=== PATIENT | male | born 1990 | race Caucasian/White ===

== ENCOUNTER 2016-03-27 15:48 | Emergency (ER) | payer BC ==
--- NOTE | 2016-03-27 16:01 | ER Document Report ---
ED Medical Screen (RME) - General Chief Complaint: Hives Stated Complaint: POSSIBLE HIVES Notes: onset: yesterday urgent yesterday steroids IM, prednisone [facility]: for worsening hives benadryl, pepcid hives improving in severity NKSAQIB works in the [employer], was tested for lyme disease yesterday I have greeted and performed a rapid initial assessment of this patient. A comprehensive ED assessment and evaluation of the patient, analysis of test results and completion of the medical decision making process will be conducted by additional ED providers. TRAVEL OUTSIDE OF THE [place] IN LAST 30 DAYS: No
[2016-03-27] MEDS ORDERED: EPINEPHRINE INJ/PF 1 MG/1 ML AMPULE IM ONE (18:55)
[2016-03-27] MEDS ORDERED: FAMOTIDINE INJ/PF 20 MG/2 ML SDV IV ONE (18:56)
[2016-03-27] MEDS ORDERED: DEXAMETHASONE SOD PHOSPHATE INJ 4 MG/1 ML VIAL IV ONE (18:56)
[2016-03-27] MEDS ORDERED: NORMAL SALINE 1000 ML 1,000 ML IV ONE (18:56)
--- NOTE | 2016-03-27 18:57 | ER Document Report ---
ED Skin Rash/Insect Bite/Abscs - General Time seen by provider: 18:15 Mode of Arrival: Ambulatory Information source: Patient, Parent TRAVEL OUTSIDE OF THE [place] IN LAST 30 DAYS: No - HPI Patient complains to provider of: Skin rash/lesion Onset: Other - see HPI note Quality of pain: Burning, Other - itchy Skin Character: Other - hives Quality of rash: Itchy, Burning Identify cause: No Similar symptoms previously: Yes Recently seen / treated by doctor: Yes <LAKEISHA KHAN - Last Filed: 03/27/16 23:57> <GEORGINA RON - Last Filed: 03/28/16 01:38> - General Chief Complaint: Hives Stated Complaint: POSSIBLE HIVES Notes: Patient is a 25-year-old male presents to the emergency department with complaints of hives. 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 Patient states that he is working Sunday and Sunday in the [employer]. Patient states that yesterday he woke up with some hives on his torso and they've progressed into his legs and arms. Patient states that he has not had any change to his soaps, detergents or other products. Patient states that he went to the urgent care on Sunday; patient was given a shot of steroids and prednisone 60 mg. Patient states that he got from urgent care his hives seem to worsen. Patient went to the [facility] emergency room last night because his hives had worsened. Patient was given Benadryl and Pepcid. Patient states that his redness and hives started to receive while at the emergency room. Patient states that when he went to sleep last night he did not have any hives. Patient woke this morning with hives all over his torso, upper and lower extremities, chest and neck. Patient states that today his hives burn and itch whereas yesterday they were mainly itching. Patient states he also has had some chills today. Patient continued to take prednisone, Benadryl and Pepcid. Patient states that the medication seems to help relieve his symptoms some in the morning when he takes his medication but that his hives are returning about mid day into the evening. Patient states that his hives are not going away. Patient states that he has not worn the same clothes however he did not change his bed sheets after completely getting rid of the hives last night in the emergency department. Patient states that he uses old spice body wash. Patient states that he had an episode of hives about 10 days ago. Patient describes the procedure completed. Patient is also found to have a enlarged spleen; this was discovered about 4 months ago and patient states he has not had an explanation. Patient states spleen has not grown in size since. Patient takes 5 mg of lisinopril for his hypertension. Patient has no known medical allergies or allergies to food for other products. Patient's primary physician is [facility]. (LAKEISHA KHAN) - Related Data Allergies/Adverse Reactions: No Known Allergies Allergy (Unverified 03/27/16 16:00) Past Medical History - General Information source: Patient - Social History Smoking Status: Never Smoker Cigarette use (# per day): No Chew tobacco use (# tins/day): No Frequency of alcohol use: None Drug Abuse: None Occupation: Integrated Marketing Intern Family History: None Patient has suicidal ideation: No Patient has homicidal ideation: No - Past Medical History Cardiac Medical History: Reports: Hx Hypertension <LAKEISHA KHAN - Last Filed: 03/27/16 23:57> Review of Systems - Review of Systems Constitutional: See HPI, Chills EENT: No symptoms reported Cardiovascular: No symptoms reported Respiratory: No symptoms reported Gastrointestinal: No symptoms reported Genitourinary: No symptoms reported Male Genitourinary: No symptoms reported Musculoskeletal: No symptoms reported Skin: See HPI Hematologic/Lymphatic: No symptoms reported Neurological/Psychological: No symptoms reported -: Yes All other systems reviewed and negative <LAKEISHA KHAN - Last Filed: 03/27/16 23:57> Physical Exam - Vital signs Interpretation: Normal - General General appearance: Appears well, Alert In distress: Mild - HEENT Head: Normocephalic, Atraumatic Eyes: Normal Pupils: PERRL Mucous membranes: Moist - Respiratory Respiratory status: No respiratory distress Chest status: Nontender Breath sounds: Normal Chest palpation: Normal - Cardiovascular Rhythm: Regular Heart sounds: Normal auscultation Murmur: No - Abdominal Inspection: Normal Distension: No distension Bowel sounds: Normal Tenderness: Nontender Organomegaly: No organomegaly - Back Back: Normal, Nontender - Extremities General upper extremity: Normal ROM, Normal strength General lower extremity: Normal ROM, Normal strength. No: Eitan's sign - Neurological Neuro grossly intact: Yes Cognition: Normal Orientation: AAOx4 [place] Coma Scale Eye Opening: Spontaneous Espinoza Coma Scale Verbal: Oriented [place] Coma Scale Motor: Obeys Commands [place] Coma Scale Total: 15 Speech: Normal Sensory: Normal - Psychological Associated symptoms: Normal affect, Normal mood - Skin Skin Temperature: Warm Skin Moisture: Dry <LAKEISHA KHAN - Last Filed: 03/27/16 23:57> <GEORGINA RON - Last Filed: 03/28/16 01:38> - Vital signs Vitals: Temp Pulse Resp BP Pulse Ox 97.3 F 77 18 144/79 H 100 03/27/16 15:57 03/27/16 15:57 03/27/16 15:57 03/27/16 15:57 03/27/16 15:57 (LAKEISHA KHAN) (GEORGINA RON) Course - Laboratory Result Diagrams: 03/27/16 19:15 03/27/16 19:15 - Consults [facility] Time consulted: 22:45 Dr. Valdez Time consulted: 22:50 <LAKEISHA KHAN - Last Filed: 03/27/16 23:57> - Laboratory Result Diagrams: 03/27/16 19:15 03/27/16 19:15 <GEORGINA RON - Last Filed: 03/28/16 01:38> - Re-evaluation Re-evalutation: 03/28/16 Patient is a 25-year-old male who presents with diffuse urticaria. Patient was given multiple medications and initially felt better. Discussed with patient treating him for a tickborne illness such as Lyme disease. Patient received doxycycline and then urticaria worsened and went to his face and palms. Patient was discussed with infectious disease at [place]. States that unlikely that the patient has Patriot spotted fever. Concerned more about possible allergic reaction to doxycycline. Discussed possibility of Jarisch herxheimer reaction--she thinks it is unlikely. Results discussed with patient. Titers have been sent. Patient will have prednisone, Benadryl, famotidine. He is to avoid anything that could induce an allergic reaction. Discussed with patient taking off a course of antibiotics for tickborne illness after his allergic reaction is resolved. Patient is also instructed to follow- up with dermatology. Understands agrees with plan. Stable for discharge. (GEORGINA RON) - Vital Signs Vital signs: Temp Pulse Resp BP Pulse Ox 98.4 F 74 18 134/80 H 99 03/27/16 23:50 03/27/16 23:50 03/27/16 23:50 03/27/16 23:50 03/27/16 23:50 (LAKEISHA KHAN) (GEORGINA RON) - Laboratory Laboratory results interpreted by me: 03/27/16 19:15 WBC 18.0 H Seg Neutrophils % 87.4 H Lymphocytes % 6.0 L Absolute Neutrophils 15.7 H (GEORGINA RON) - Consults [facility] Reason for consultation: 03/27/16 22:45 Contacted the transfer center to contact infectious diseases. (LAKEISHA KHAN) Dr. Valdez Reason for consultation: 03/27/16 22:[address] Valdez to discuss patient and possible recommendations. (LAKEISHA KHAN) Discharge <LAKEISHA KHAN - Last Filed: 03/27/16 23:57> <GEORGINA RON - Last Filed: 03/28/16 01:38> - Discharge Clinical Impression: Urticaria, Possible tic-borne illness Condition: Stable Disposition: HOME, SELF-CARE Instructions: Acute Urticaria ([facility]), Tick Bites ([facility]) Additional Instructions: Please follow-up on your tick-related blood work. Please follow-up with your doctor. Please consider a course of antibiotics to treat underlying Lyme disease when your allergic reaction has stopped. Prescriptions: Prednisone 10 mg PO ASDIR PRN #30 tablet PRN Reason: Forms: Return to Work Referrals: Antonio Rogel DO [Primary Care Provider] - Follow up as needed SAM KRAMER DO [ACTIVE STAFF] - Follow up in 3-5 days Scribe Attestation: 03/28/16 01:38 I personally performed the services described in the documentation, reviewed and edited the documentation which was dictated to the scribe in my presence, and it accurately records my words and actions. (GEOGRINA RON) Scribe Documentation - Scribe Written by Scribe:: Lakeisha Khan 03/27/16 21:30 acting as scribe for :: Maya <LAKEISHA KHAN - Last Filed: 03/27/16 23:57>
[2016-03-27] MEDS ORDERED: DIPHENHYDRAMINE HCL 50 MG/ML VIAL IV ONE ×2 (19:37→22:35)
[2016-03-27 19:41] LABS: ABSOLUTE LYMPHOCYTES (AUTO) 1.1 10^3/uL (0.5-4.7); ABSOLUTE MONOCYTES (AUTO) 1.2 10^3/uL (0.1-1.4); ABSOLUTE NEUT (AUTO) 15.7 10^3/uL (1.7-8.2); HEMATOCRIT 43.3 % (37.9-51.0); HEMOGLOBIN 14.4 g/dL (13.5-17.0); HGB HCT DIFFERENCE -0.1; MEAN CORPUSCULAR HGB CONC 33.3 g/dL (32.0-36.0); MEAN CORPUSCULAR VOLUME 81 fl (80-97); MONOCYTES % (AUTO) 6.6 % (3-13); RED BLOOD COUNT 5.33 10^6/uL (4.35-5.55); RED CELL DISTRIBUTION WIDTH 13.1 % (11.5-14.0); SEGMENTED NEUTROPHILS % (AUTO) 87.4 % (42-78)
[2016-03-27 19:53] LABS: ALANINE AMINOTRANSFERASE 33 U/L (21-72); ALBUMIN 4.8 g/dL (3.5-5.0); ALKALINE PHOSPHATASE 58 U/L (38-126); ANION GAP 13 (5-19); ASPARTATE AMINO TRANSFERASE 20 U/L (17-59); BILIRUBIN,TOTAL 0.8 mg/dL (0.2-1.3); BLOOD UREA NITROGEN 13 mg/dL (7-20); CALCIUM 9.8 mg/dL (8.4-10.2); CARBON DIOXIDE 25 mmol/L (22-30); CHLORIDE 104 mmol/L (98-107); GLUCOSE 104 mg/dL (75-110); POTASSIUM 4.1 mmol/L (3.6-5.0); SODIUM 141.6 mmol/L (137-145); TOTAL PROTEIN 7.2 g/dL (6.3-8.2)
[2016-03-27] MEDS ORDERED: DOXYCYCLINE HYCLATE 100 MG TABLET PO ONE (20:57)
[2016-03-27 23:51] VITALS: BP 134/80
[2016-03-29 15:53] LABS: LYME DISEASE IGG AND IGM AB <0.91 ISR (0.00-0.90)
[2016-03-30 18:37] LABS: ROCKY MTN SPOTTED FEV IGG EIA Positive (Negative)
== END 2016-03-27 23:53 | disposition home or self-care (01) ==
LOC: ER 15:48
DX: L50.9 Urticaria, unspecified (principal)
CPT/HCPCS: 96376; 99283; 96361; 96374; 96375; 36415; 85025; 86592; 80053; 86757 ×2; 86618 ×2; 86617 ×2; J1100; J1200; J0171; J7030; S0028